=== PATIENT | male | born 1955 | race Two or more races ===

== ENCOUNTER 2025-09-03 10:30 | Day surgery (SDC) | payer MEDICARE, MEDICAID, SELFPAY ==
[2025-09-02 11:23] VITALS: BMI 29.5
[2025-09-03] VITALS (10 sets, daily range): BP systolic 122–161; BP diastolic 81–102; PULSE 56–74; RESP 12–20; TEMP 36.7–36.9; O2SAT 92–99; BMI 30.5
[2025-09-03] MEDS: BENZOCAINE 20% (Hurricaine) SPRAY 1 DOSE TOP (12:28)
[2025-09-03] MEDS: SODIUM CHLORIDE 0.9% 500 ML 500 ML 20 ML IV (12:28)
[2025-09-03] MEDS: MIDAZOLAM INJ 1 MG/ML VIAL 2 ML (ASD USE ONLY) 2 MG IVP (12:39)
[2025-09-03] MEDS: fentaNYL CIT INJ 50 mCg/ML AMP 2ML (ASD USE ONLY) IVP (12:39)
== END 2025-09-03 13:29 | disposition home or self-care (01) ==
PROVIDERS: PCP Family Medicine; Referring Provider Specialist; Visit Provider Specialist
PROC: (CPT 43239; principal; 2025-09-03 12:00)
DX: K22.2 Esophageal obstruction (principal); K20.90 Esophagitis, unspecified without bleeding; I10 Essential (primary) hypertension; E78.5 Hyperlipidemia, unspecified; K21.9 Gastro-esophageal reflux disease without esophagitis; Z79.899 Other long term (current) drug therapy; K29.50 Unspecified chronic gastritis without bleeding; K22.70 Barrett's esophagus without dysplasia
CPT/HCPCS: 43248; 43239; A4649; C1769; J1200; J2250; J3010; J7999; A9270